=== PATIENT | male | born 1995 | race Caucasian/White ===

== ENCOUNTER 2019-06-05 00:48 | Emergency (ER) | payer OTHER ==
[2019-06-05] MEDS ORDERED: Ondansetron INJ* 2 MG/ML VIAL IV ONE (01:02)
--- NOTE | 2019-06-05 01:08 | ED ---
Substance Abuse/Use - HPI Summary HPI Summary: This pt is a 23 Y/O M brought in by EMS to [facility] for alcohol intoxication. The pt also fell down and has a laceration to his left eyebrow. This pt is a level 5 caveat due to acute alcohol intoxication. - History Of Current Complaint Chief Complaint: EDSubstanceAbuse Stated Complaint: ETOH PER EMS Hx From Patient Unobtainable Due To: Other - Pt is a level 5 caveat due to his level of intoxication Associated Signs And Symptoms: Other: - laceration over his L eye brow - Allergies/Home Medications Allergies/Adverse Reactions: Allergies Allergy/AdvReac Type Severity Reaction Status Date / Time Unable to Assess Allergy Verified 06/05/19 01:07 PMH/Surg Hx/FS Hx/Imm Hx Previously Healthy: No Infectious Disease History: No Infectious Disease History: Denies: Traveled Outside the [place] in Last 30 Days - unk - Additional Comments History Additional Comments: Pt is a level 5 caveat due to his level of intoxication and unresponsiveness. Therefore his PMHx is unobtainable. Review of Systems - ROS Summary Review of Systems Summary: A full ROS is unobtainable due to the pt's level of intoxication. All Other Systems Reviewed And Are Negative: No Physical Exam - Summary Physical Exam Summary: Appearance: Well-appearing, Well-nourished, lying in bed comfortably Skin: Warm, dry, no obvious rash, 2 cm laceration over his L eyebrow without active bleeding and active swelling Eyes: sclera anicteric, no conjunctival pallor ENT: mucous membranes moist, pharynx appears normal Neck: Supple, nontender Respiratory: Clear to auscultation, no signs of respiratory distress Cardiovascular: Normal S1, S2. No murmurs. Normal distal pulses in tibial and radial bilaterally. Abdomen: Soft, nontender, normal active bowel sounds present Musculoskeletal: Normal, Strength/ROM Intact Neurological: A&Ox3, awake and alert, mentation is normal, speech is fluent and appropriate Psychiatric: affect is normal, does not appear anxious or depressed A full PE is unobtainable due to the pt's level of intoxication. Triage Information Reviewed: Yes Vital Signs On Initial Exam: Initial Vitals Temp Pulse Resp BP Pulse Ox 96.5 F 72 16 97/47 96 06/05/19 00:54 06/05/19 00:54 06/05/19 00:54 06/05/19 00:54 06/05/19 00:54 Vital Signs Reviewed: Yes Procedures - Sedation Patient Received Moderate/Deep Sedation with Procedure: No Diagnostics - Vital Signs Vital Signs Temp Pulse Resp BP Pulse Ox 06/05/19 00:54 96.5 F 72 16 97/47 96 - Laboratory Lab Statement: Any lab studies that have been ordered have been reviewed, and results considered in the medical decision making process. Course/Dx - Course Course Of Treatment: This pt is a level 5 caveat due to acute alcohol intoxication. He has a laceration over his left eyebrow. He was unresponsive upon arrival but currently responds to painful stimuli by groaning. His PE found that he has a 2 cm laceration over his L eyebrow without active bleeding and active swelling. His Serum alcohol level is a 259. This pt will be signed out to Dr. Torres pending sobriety. He was diagnosed with alcohol intoxication and an eyebrow laceration during his ED course. - Diagnoses Provider Diagnoses: Alcohol intoxication, Eyebrow laceration Discharge ED - Sign-Out/Discharge Documenting (check all that apply): Sign-Out Patient Signing out patient TO: Chad Torres - Discharge Plan Condition: Good Disposition: HOME Patient Education Materials: Alcohol Intoxication (ED), Facial Laceration (ED) Referrals: [facility] [Outside] - 1 Week Additional Instructions: Follow up at [facility] for suture removal in 7-10 days. Return to the emergency department for any new or worsening symptoms. - Billing Disposition and Condition Condition: GOOD Disposition: Home - Attestation Statements Document Initiated by Altaf: Yes Documenting Scribe: Lance Delatorre Provider For Whom Altaf is Documenting (Include Credential): Ambrose Benitez MD Scribe Attestation: Lance Londono, scribed for Ambrose Benitez MD on 06/06/19 at 0115. Scribe Documentation Reviewed: Yes Provider Attestation: The documentation as recorded by the Lance jurado accurately reflects the service I personally performed and the decisions made by me, Ambrose Benitez MD Status of Scribe Document: Viewed
--- NOTE | 2019-06-05 07:24 | ED ---
Progress - Progress Note Progress Note: The patient is a sign-out from Dr. Ambrose Benitez MD, to Dr. Chad Torres MD, at change of shift at 0700 on 06/05/19, pending sobriety and likely discharge. 0905 - patient is awake and ambulatory; we evaluated patient's left eyebrow for possible laceration repair, and we will perform the procedure 2 cm y-shaped left eyebrow laceration repaired using 1.0% lido without epi, 7 5- 0 sutures, no bleeding Brain CT offered but patient declined; neuro exam is normal PHYSICAL EXAM Neuro: Alert and oriented x 3. No acute neurological deficits. Speech is normal and follows commands. GCS: 15. Patient clear for discharge home. Re-Evaluation - Re-Evaluation First Eval Re-Evaluation Time: 09:05 Change: Improved Comment: He is ambulatory and awake. We will repair the laceration on the left eyebrow. Course/Dx - Course Course Of Treatment: The patient is a sign-out from Dr. Ambrose Benitez MD, to Dr. Chad Torres MD, at change of shift at 0700 on 06/05/19, pending sobriety and likely discharge. I offered to order a Brain CT for the patient, but he declined. His neuro exam is normal. Two cm y-shaped left eyebrow laceration repaired using 1.0% lido without epi as local anesthetic and closed with seven 5 -0 nylon sutures, no bleeding. Since patient's alcohol level should be at safe level for discharge, he is clear to go home as he is awake and ambulatory without neuro deficits present. He is instructed to have sutures removed in 7- 10 days. Patient understands and agrees with this plan. - Diagnoses Provider Diagnoses: Alcohol intoxication, Eyebrow laceration Discharge ED - Sign-Out/Discharge Documenting (check all that apply): Patient Departure - Patient will be discharged home., Receiving Sign-Out Receiving patient FROM: Ambrose Benitez - Patient is a sign-out from Dr. Ambrose Benitez MD, at change of shift at 0700 on 06/05/19, pending sobriety and likely discharge. - Discharge Plan Condition: Good Disposition: HOME Patient Education Materials: Alcohol Intoxication (ED), Facial Laceration (ED) Referrals: [facility] [Outside] - 1 Week Additional Instructions: Follow up at [facility] for suture removal in 7-10 days. Return to the emergency department for any new or worsening symptoms. - Billing Disposition and Condition Condition: GOOD Disposition: Home - Attestation Statements Document Initiated by Altaf: Yes Documenting Scribe: Chari Becker Provider For Whom Altaf is Documenting (Include Credential): Dr. Chad Torres MD Scribe Attestation: Chari Londono, scribed for Dr. Chad Torres MD on 06/06/19 at 0914. Scribe Documentation Reviewed: Yes Provider Attestation: The documentation as recorded by the Chari jurado accurately reflects the service I personally performed and the decisions made by me, Dr. Chad Torres MD Status of Scribe Document: Viewed Procedures - Sedation Patient Received Moderate/Deep Sedation with Procedure: No - Laceration/Wound Repair 1 Location: face - left eyebrow Anesthesia: 1.0%, Lido Length, Depth and Shape: 2 cm, y-shape Laceration/Wound Explored: clean Suture Type: Nylon - 5-0 Number of Sutures: 7
[2019-06-05 09:29] VITALS: BP 120/75
== END 2019-06-05 09:29 | disposition home or self-care (01) ==
LOC: ED 00:48
DX: F10.929 Alcohol use, unspecified with intoxication, unspecified (principal); S01.112A Laceration without foreign body of left eyelid and periocular area, initial encounter; W19.XXXA Unspecified fall, initial encounter; Y92.9 Unspecified place or not applicable
CPT/HCPCS: 12011; 36415; 80320; 96374; 99284; G0480; J2405